=== PATIENT | female | born 1995 | race African-American/Black ===

== ENCOUNTER 2022-11-01 19:16 | Emergency (ER) | payer OTHER ==
[2022-11-01] MEDS ORDERED: Sodium Chloride 0.9% 1,000 ML IV ONE (20:01)
[2022-11-01] MEDS ORDERED: Metoclopramide 10 MG/2 ML SDV IVPUSH ONE (20:01)
[2022-11-01] MEDS ORDERED: Alum Hydrox/Mag Hydrox/Simeth 30 ML, Lidocaine 2% 15 ML PO ONE ×2 (20:03)
[2022-11-01] MEDS ORDERED: HYDROmorphone 0.5 MG/0.5 ML Syringe IVPUSH ONE (22:15)
== END 2022-11-02 00:16 | disposition home or self-care (01) ==
LOC: JD.ED 19:16
DX: R10.9 Unspecified abdominal pain (principal); Z86.16 Personal history of COVID-19
CPT/HCPCS: 36415; 74177; 80053; 84702; 85025; 96374; 96375; 99284; A9270; J1170; J2765

== ENCOUNTER 2024-01-31 08:44 | Emergency (ER) | payer MEDICAID, OTHER | END 2024-01-31 10:50 | disposition home or self-care (01) | LOC: JD.ED 08:44 | DX: O99.891 Other specified diseases and conditions complicating pregnancy (principal); M54.50 Low back pain, unspecified; G89.29 Other chronic pain; Z79.899 Other long term (current) drug therapy; Z86.16 Personal history of COVID-19; Z3A.12 12 weeks gestation of pregnancy | CPT/HCPCS: 99283 ==

== ENCOUNTER 2024-08-30 21:04 | Emergency (ER) | payer OTHER ==
[2024-08-30] MEDS ORDERED: Sodium Chloride 0.9% 10 ML Syringe FLUSH PRN (23:12)
[2024-08-30 23:17] LABS: BASOPHILS PERCENT AUTO 0.1 % (0.0-1.0); EOSINOPHILS PERCENT AUTO 0.1 % (0.0-6.0); HEMATOCRIT 43.5 % (37.0-47.0); HEMOGLOBIN 13.5 gm/dl (12.0-16.0); IMMATURE GRAN ABSOLUTE AUTO 0.04 K/mm3 (0.00-0.05); IMMATURE GRAN PERCENT AUTO 0.3 % (0.0-0.4); LYMPHOCYTES ABSOLUTE AUTO 1.2 K/mm3 (1.0-4.8); LYMPHOCYTES PERCENT AUTO 8.7 % (24.0-44.0); MEAN CORPUSCULAR HEMOGLOBIN 24.4 pg (28.0-32.0); MEAN CORPUSCULAR VOLUME 78.7 fl (83.0-99.0); MEAN PLATELET VOLUME 11.7 fl (9.4-12.3); MONOCYTES ABSOLUTE AUTO 0.2 K/mm3 (0.0-0.8); MONOCYTES PERCENT AUTO 1.8 % (0.0-8.0); PLATELET COUNT,PLT 282 K/mm3 (150-400); RED BLOOD CELL COUNT 5.53 M/mm3 (4.10-5.30); WHITE BLOOD CELL COUNT,WBC 13.48 K/mm3 (3.9-11.3)
[2024-08-30 23:31] LABS: A/G RATIO 0.8 (1-2); ANION GAP 13.6 (5-15); BILIRUBIN TOTAL 0.4 mg/dL (0.2-1.0); BUN/CREATININE RATIO 8.9 (14-18); CALCIUM 9.4 mg/dL (8.5-10.1); CREATININE 0.9 mg/dL (0.55-1.02); EST CRCL DRUG DOSING (CG) 96.39 mL/min; POTASSIUM,K 3.6 mEq/L (3.5-5.1); PROTEIN TOTAL,TP 9.3 g/dl (6.4-8.2)
[2024-08-30 23:35] LABS: LACTIC ACID 1.3 mmol/L (0.4-2.0)
[2024-08-31] MEDS ORDERED: Naloxone 0.4 MG/ML SDV IVPUSH PRN (00:13)
[2024-08-31] MEDS: Metoclopramide 10 MG/2 ML SDV IVPUSH ONE (00:17)
[2024-08-31] MEDS: Morphine 4 MG/ML Syringe IVPUSH ONE (00:17)
[2024-08-31] MEDS: Alum Hydrox/Mag Hydrox/Simeth 30 ML, Lidocaine 2% 15 ML PO ONE (00:47)
[2024-08-31] MEDS: Sodium Chloride 0.9% 1,000 ML IV ONE (01:48)
[2024-08-31] MEDS: Famotidine 20 MG/2 ML SDV IVPUSH ONE (01:48)
[2024-08-31] MEDS: Enalapril 5 MG Tab PO ONE (02:50)
== END 2024-08-31 02:56 | disposition home or self-care (01) ==
LOC: JD.ED 21:04
DX: R10.13 Epigastric pain (principal); Z86.16 Personal history of COVID-19; Z79.899 Other long term (current) drug therapy
CPT/HCPCS: 36415; 80053; 83605; 83690; 84484; 84703; 85025; 93005; 96361; 96374; 96375; 99284; A9270; J2270; J2765; J7030

== ENCOUNTER 2024-09-01 10:29 | Emergency (ER) | payer OTHER ==
[2024-09-01] MEDS: Metoclopramide 10 MG/2 ML SDV IVPUSH ONE (12:37)
[2024-09-01] MEDS: Sodium Chloride 0.9% 10 ML Syringe FLUSH ONE (12:37)
[2024-09-01] MEDS: diphenhydrAMINE 50 MG/ML SDV IVPUSH ONE (12:37)
[2024-09-01] MEDS: Sodium Chloride 0.9% 1,000 ML IV SCH (12:37)
[2024-09-01] MEDS: Sodium Chloride 0.9% 10 ML Syringe FLUSH PRN (12:39)
[2024-09-01 12:57] LABS: BASOPHILS PERCENT AUTO 0.2 % (0.0-1.0); EOSINOPHILS PERCENT AUTO 0.1 % (0.0-6.0); HEMATOCRIT 45.8 % (37.0-47.0); HEMOGLOBIN 14.1 gm/dl (12.0-16.0); IMMATURE GRAN ABSOLUTE AUTO 0.04 K/mm3 (0.00-0.05); IMMATURE GRAN PERCENT AUTO 0.3 % (0.0-0.4); LYMPHOCYTES PERCENT AUTO 15.9 % (24.0-44.0); MEAN CORPUSCULAR HGB CONC 30.8 g/dl (32.0-36.0); MEAN CORPUSCULAR VOLUME 77.9 fl (83.0-99.0); MEAN PLATELET VOLUME 11.4 fl (9.4-12.3); MONOCYTES ABSOLUTE AUTO 0.7 K/mm3 (0.0-0.8); MONOCYTES PERCENT AUTO 5.4 % (0.0-8.0); NEUTROPHILS ABSOLUTE AUTO 9.8 K/mm3 (1.8-7.7); NEUTROPHILS PERCENT AUTO 78.1 % (41.0-71.0); PLATELET COUNT,PLT 314 K/mm3 (150-400); RED BLOOD CELL COUNT 5.88 M/mm3 (4.10-5.30); WHITE BLOOD CELL COUNT,WBC 12.51 K/mm3 (3.9-11.3)
[2024-09-01] MEDS ORDERED: Naloxone 0.4 MG/ML SDV IVPUSH PRN ×2 (13:21→15:20)
[2024-09-01 13:23] LABS: LACTIC ACID 0.9 mmol/L (0.4-2.0)
[2024-09-01 13:30] LABS: A/G RATIO 0.8 (1-2); ALBUMIN 3.8 g/dl (3.4-5.0); ANION GAP 8.7 (5-15); BILIRUBIN TOTAL 0.4 mg/dL (0.2-1.0); BUN/CREATININE RATIO 11.1 (14-18); C-REACTIVE PROTEIN 0.25 mg/dL (<0.30); CALCIUM 9.2 mg/dL (8.5-10.1); CREATININE 0.9 mg/dL (0.55-1.02); EST CRCL DRUG DOSING (CG) 96.39 mL/min; POTASSIUM,K 3.7 mEq/L (3.5-5.1); PROTEIN TOTAL,TP 8.8 g/dl (6.4-8.2)
[2024-09-01] MEDS: Iopamidol 612 MG/ML 100 ML Bottle IVPUSH ONE (13:38)
[2024-09-01] MEDS: fentaNYL 100 MCG/2 ML SDV IVPUSH ONE ×2 (14:00→15:32)
== END 2024-09-01 15:45 | disposition home or self-care (01) ==
LOC: JD.ED 10:29
DX: K52.9 Noninfective gastroenteritis and colitis, unspecified (principal); Z79.899 Other long term (current) drug therapy; Z86.16 Personal history of COVID-19
CPT/HCPCS: 36415; 74177; 80053; 83605; 83690; 85025; 86140; 87428; 87651; 96361; 96374; 96375; 96376; 99284; J1200; J2765; J3010; J7030; Q9967